=== PATIENT | male | born 1945 | race Caucasian/White ===

== ENCOUNTER 2019-11-06 14:14 | Emergency (ER) | payer MEDICARE ==
[~2019-11-06 14:14] MED LIST: Iopamidol 370 76% 100 ML VIAL ONE
--- NOTE | 2019-11-06 15:44 | RAD ---
CHEST ONE VIEW: 11/06/19 INDICATION: Chest pain COMPARISON: None. FINDINGS: The lungs are hypoinflated. No consolidation, pleural effusion, or pneumothorax evident. Heart size i s normal appearing. No acute osseous abnormality is evident. IMPRESSION: No acute abnormality. POS: BH
--- NOTE | 2019-11-06 15:55 | RAD ---
KUB: 11/06/19 INDICATION: History of abdominal pain. FINDINGS: There is a 7 mm x 3 mm calculus within the left hemipelvis above the level of the ischial spine which may reflect a phlebolith versus distal left ureteral calculus. There is a 7 mm calculus overlying th e left mid renal shadow. No suspicious calcifications overlying the right renal shadow or expected co urse of the right renal collecting system. Bowel gas pattern is unobstructed. There is scattered dege nerative changes of the visualized osseous structures. IMPRESSION: 1. 7 x 3 mm calcification seen within the left hemipelvis possibly related to renal stone or phl ebolith. Recommend consideration for CT of the abdomen and pelvis without contrast for further charac terization. 2. Left nephrolithiasis. 3. Bowel gas pattern is unobstructed. POS: BH
[2019-11-06 16:09] LABS: #Basophils 0.1 thou/uL (0.0-0.2); #Lymphocytes 2.2 thou/uL (1.20-3.40); #Monocytes 1.8 thou/uL (0.11-0.59); #Neutrophils 13.8 thou/uL (1.40-6.50); %Basophils 0.7 % (0.0-1.0); %Eosinophils 0.1 % (0.0-10.0); %Lymphocytes 12.1 % (21.0-51.0); %Monocytes 10.2 % (0.0-10.0); %Neutrophils 76.8 % (42.0-75.0); Hemoglobin 15.1 g/dL (14.0-18.0); Mean Corpuscular HGB CONC 34.1 g/dL (32.0-36.0); Mean Corpuscular Hemoglobin 29.7 pg (27.0-31.0); Mean Corpuscular Volume 87.3 fL (78.0-98.0); Mean Platelet Volume 6.3 fL (7.4-10.4); Platelet Count 238 thou/uL (130-400); RBC Distribution Width 11.9 % (11.5-14.5); Red Blood Cell (RBC) Count 5.07 mill/uL (4.70-6.10)
[2019-11-06 16:25] LABS: ALT (SGPT) 17 U/L (8-55); AST (SGOT) 23 U/L (5-34); Alkaline Phosphatase 66 U/L (40-110); Anion Gap 19 mmol/L (10-20); BUN (Urea Nitrogen) 20 mg/dL (8.4-25.7); Bilirubin, Total 0.8 mg/dL (0.2-1.2); CK (CPK) 98 U/L (30-200); Calc. Creatinine Clearance 0 mL/min (70-130); Calcium 8.8 mg/dL (7.8-10.44); Carbon Dioxide 21 mmol/L (23-31); Chloride 91 mmol/L (98-107); Estimated GFR-MDRD 56; Globulin 3.2 g/dL (2.4-3.5); Glucose 254 mg/dL (83-110); Lipase 33 U/L (8-78); Potassium 4.5 mmol/L (3.5-5.1); Protein, Total 7.2 g/dL (5.8-8.1); Sodium 126 mmol/L (136-145)
[2019-11-06 16:26] LABS: Bilirubin Negative (Negative); Blood, Urine Small (Negative); Clarity Clear (Clear); Glucose, Urine (Dipstick) 500 mg/dL (Negative); Ketone, Urine Negative (Negative); Leukocyte Negative (Negative); Nitrite Negative (Negative); Protein, Urine (Dipstick) Negative (Neg-Trace); Urobilinogen 0.2 mg/dL (Less than 2); pH, Urine 5.5 (5.0-9.0)
[2019-11-06 16:30] LABS: Specific Gravity, Urine 1.006 (1.002-1.036)
[2019-11-06 16:40] LABS: Bacteria/HPF Rare-Few HPF (None Seen); RBC/HPF 0-3 HPF (0-3); Squamous Epithelial 0-3 HPF (0-3); WBC/HPF None Seen HPF (0-3)
[2019-11-06] MEDS ORDERED: Piperacillin/Tazobactam 4.5 GM VIAL ONE (16:48)
[2019-11-06] MEDS ORDERED: Sodium Chloride 0.9% 1,000 ML ONE (16:48)
[2019-11-06] MEDS ORDERED: Sodium Chloride 0.9% 100 ML ONE (16:48)
--- NOTE | 2019-11-06 17:19 | CT ---
CT ABDOMEN WITH CONTRAST CT PELVIS WITH CONTRAST: DATE: 11/06/2019 HISTORY: 74-year-old male with unspecified abdominal pain COMPARISON: None TECHNIQUE: IV injection of iodinated contrast media: administered. Oral contrast media:Not administered FINDINGS: There is a 7 x 5 x 4 mm calculus in the far distal left ureter, approximately 1 cm proximal to the le ft UVJ, causing mild left hydroureteronephrosis. There is mural enhancement of the left ureter and left calyces. There is left perirenal space fat stranding greater than that of the right perirenal space. Slightly delayed left nephrogram. At least 2 small right renal calculi. 1 left renal calculus measuring 7 x 9 x 4 mm at an upper pole calyx. No abdominal aortic aneurysm. Distended urinary bladder was normal mural thickness. Fat stranding with small air-fluid along the left paracolic gutter into left pelvic inlet. Circumferential perirectal layer of edema fluid. Presacral space. Sigmoid and descending colonic diverticulosis. No convincing evidence of diverticulitis. No abscess. No small bowel dilation. No splenomegaly. No pancreatic abnormality. No adrenal nodule. 2 cm low-attenuation lesion in right lobe of liver in hepatic segment 7, with lobular margins and den sity of 20 Hounsfield units. No pleural effusion, pneumoperitoneum, or small bowel dilation. Appendix not identified. IMPRESSION: 1) a 7 mm calculus in the far distal left ureter near the ureterovesical junction causing obstructive uropathy, with left mild hydroureteronephrosis, and delayed left nephrogram. 2) bilateral nephrolithiasis. 3) indeterminate 2 cm lesion in right lobe of liver. Recommend multiphase CT abdomen with and without contrast, liver mass protocol, on a non- emergent basis
[2019-11-06] MEDS ORDERED: Ketorolac Tromethamine 30 MG/ML VIAL ONE (17:37)
[2019-11-06] MEDS ORDERED: Ondansetron PF 4 MG/2 ML Vial ONE (17:37)
== END 2019-11-06 18:40 | disposition short-term general hospital (02) ==
LOC: MADERS 14:14
DX: N13.2 Hydronephrosis with renal and ureteral calculous obstruction (principal); E87.1 Hypo-osmolality and hyponatremia; D72.829 Elevated white blood cell count, unspecified; R63.0 Anorexia; I10 Essential (primary) hypertension; E11.9 Type 2 diabetes mellitus without complications; Z79.84 Long term (current) use of oral hypoglycemic drugs; Z79.899 Other long term (current) drug therapy
CPT/HCPCS: 36415; 71045; 74018; 74177; 80053; 81003; 81015; 82150; 82550; 83690; 84484; 85025; 87040; 96365; 96375; J1885; J2405; J2543; J3490; J7050; Q9967

== ENCOUNTER 2022-03-15 16:31 | Emergency (ER) | payer MEDICARE, OTHER ==
[2022-03-15 17:21] LABS: #Lymphocytes 1.4 thou/uL (1.20-3.40); #Monocytes 0.7 thou/uL (0.11-0.59); #Neutrophils 4.5 thou/uL (1.40-6.50); %Basophils 0.7 % (0.0-1.0); %Lymphocytes 21.4 % (21.0-51.0); %Monocytes 10.6 % (0.0-10.0); %Neutrophils 67.2 % (42.0-75.0); Hemoglobin 13.6 g/dL (14.0-18.0); Mean Corpuscular HGB CONC 33.5 g/dL (32.0-36.0); Mean Corpuscular Hemoglobin 29.4 pg (27.0-31.0); Mean Corpuscular Volume 87.8 fl (78.0-98.0); Mean Platelet Volume 6.2 fL (7.4-10.4); Platelet Count 156 10x3/uL (130-400); RBC Distribution Width 12.8 % (11.5-14.5); Red Blood Cell (RBC) Count 4.62 mill/uL (4.70-6.10); White Blood Cell (WBC) Count 6.7 10x3/uL (4.8-10.8)
[2022-03-15 17:29] LABS: INR-International Normal Ratio 0.9
[2022-03-15 17:30] LABS: PTT 26.1 sec (22.9-36.1)
[2022-03-15 17:33] LABS: ALT (SGPT) 16 U/L (8-55); AST (SGOT) 17 U/L (5-34); Albumin 3.4 g/dL (3.4-4.8); Alkaline Phosphatase 60 U/L (40-110); Anion Gap 15 mmol/L (10-20); BUN (Urea Nitrogen) 23 mg/dL (8.4-25.7); Bilirubin, Total 0.3 mg/dL (0.2-1.2); Calc. Creatinine Clearance 0 mL/min (70-130); Carbon Dioxide 21 mmol/L (23-31); Chloride 104 mmol/L (98-107); Estimated GFR 84; Globulin 2.7 g/dL (2.4-3.5); Glucose 191 mg/dL (83-110); Potassium 4.2 mmol/L (3.5-5.1); Protein, Total 6.1 g/dL (5.8-8.1); Sodium 136 mmol/L (136-145)
[2022-03-15] MEDS ORDERED: Sodium Chloride 0.9% 1,000 ML ONE (17:47)
[2022-03-15 18:47] LABS: Bilirubin Negative (Negative); Blood, Urine Trace (Negative); Clarity Hazy (Clear); Glucose, Urine (Dipstick) 500 mg/dL (Negative); Ketone, Urine Negative (Negative); Leukocyte Negative (Negative); Nitrite Negative (Negative); Protein, Urine (Dipstick) 100 mg/dL (Neg-Trace); Specific Gravity, Urine 1.025 (1.005-1.030); Urobilinogen 0.2 mg/dL (Less than 2); pH, Urine 5.5 (5.0-9.0)
[2022-03-15 18:59] LABS: RBC/HPF 0-3 HPF (0-3); Squamous Epithelial 0-3 HPF (0-3); WBC/HPF 0-3 HPF (0-3)
[2022-03-15 19:00] LABS: Bacteria/HPF Rare-Few HPF (None Seen)
[2022-03-15 20:03] LABS: Lactic Acid 1.8 mmol/L (0.5-2.2)
== END 2022-03-15 21:47 | disposition short-term general hospital (02) ==
LOC: MADERS 16:31
DX: R41.82 Altered mental status, unspecified (principal); F03.90 Unspecified dementia, unspecified severity, without behavioral disturbance, psychotic disturbance, mood disturbance, and anxiety; T68.XXXA Hypothermia, initial encounter; E78.00 Pure hypercholesterolemia, unspecified; E11.9 Type 2 diabetes mellitus without complications; I10 Essential (primary) hypertension; W18.30XA Fall on same level, unspecified, initial encounter; Z79.899 Other long term (current) drug therapy; Z79.84 Long term (current) use of oral hypoglycemic drugs; Z79.82 Long term (current) use of aspirin
CPT/HCPCS: 36415; 51701; 70450; 71045; 72125; 80053; 81003; 81015; 83605; 84443; 84484; 85025; 85610; 85730; 87040; 87086; 87804; 93005; J7050